=== PATIENT | female | born 1960 | race Caucasian/White ===

== ENCOUNTER 2018-07-07 17:19 | Emergency (ER) | payer OTHER ==
[2018-07-07 18:23] VITALS: BP 150/102
--- NOTE | 2018-07-07 19:08 | EDPHY ---
H & P Stated Complaint: Exacebated pain on L lateral knee. Chronic issues. Time Seen by Provider: 07/07/18 17:31 HPI/ROS: 57 yo F presents c/o left knee pain, she states it has been hurting intermittenly for at least one year, but over the last few days it has been more painful and swollen, no falls, possibly more standing and walking then usual the last few weeks. No rashes, no fevers or chills. Review of systems As per HPI General no fever no chills no weakness HEENT no eye pain no eye discharge. No eye redness, no sore throat Respiratory no cough, no shortness of breath Cardiac no chest pain, no peripheral edema GI no abdominal pain, no diarrhea, no constipation, no nausea, no vomiting no flank pain, no hematuria, no dysuria Musculoskeletal no myalgias, pos joint pain Heme no easy bruising, no easy bleeding Endo no polyuria, no polydipsia Skin no rashes, no pruritus Neuro no syncope, no dizziness, no headaches Psych is no suicidal ideation, no homicidal ideation Source: Patient Exam Limitations: No limitations - Personal History Current Tetanus Diphtheria and Acellular Pertussis (TDAP): Yes Tetanus Vaccine Date: 2017 - Medical/Surgical History Hx Asthma: No Hx Chronic Respiratory Disease: No Hx Diabetes: No Hx Cardiac Disease: No Hx Renal Disease: No Hx Cirrhosis: No Hx Alcoholism: No Hx HIV/AIDS: No Hx Splenectomy or Spleen Trauma: No Other PMH: Denies PMH. - Family History Significant Family History: No pertinent family hx - Social History Smoking Status: Never smoked Alcohol Use: Occasionally Drug Use: None - Physical Exam Exam: Alert and oriented in no acute distress nontoxic appearance, afebrile Atraumatic normocephalic Neck no JVD Lungs clear to auscultation, no respiratory distress Heart regular rate and rhythm Extremities no cyanosis clubbing edema left knee positive swellling, tenderness to palpation along lateral aspect of knee ,also most prominent area of swelling, no erythema, neg ant/post drawer no gross laxity, from Constitutional: Initial Vital Signs Temperature (C) 36.7 C 07/07/18 17:35 Heart Rate 87 07/07/18 17:35 Respiratory Rate 16 07/07/18 17:35 Blood Pressure 150/102 H 07/07/18 17:35 O2 Sat (%) 96 07/07/18 17:35 O2 Delivery Mode Room Air Allergies/Adverse Reactions: No Known Allergies Allergy (Unverified 07/07/18 17:34) Home Medications: Medication Instructions Recorded NK [No Known Home Meds] 07/07/18 Medical Decision Making ED Course/Re-evaluation: Patient seen and evaluated for left knee pain and swelling. xray with calcification in lateral collateral ligament imp calcific osteoarthritis left knee, primarily at lateral collateral ligament plan rest, ice, elevation ibuprofen or acetaminophen as needed f/u with orthopedics offered knee brace-pt refused Differential Diagnosis: Differential diagnosis considered but not limited to: Knee sprain, knee effusion, tibial plateau fracture, fibula fracture, distal femur fracture, patellar dislocation, tendinitis, osteoarthritis Departure - Departure Disposition: Home, Routine, Self-Care Clinical Impression: Left knee pain, Arthritis of left knee Condition: Good Instructions: Knee Sprain (ED), Knee Pain (ED) Referrals: NONE *PRIMARY CARE P,. [Primary Care Provider] - As per Instructions Kem Palomo MD [Medical Doctor] - As per Instructions
== END 2018-07-07 19:25 | disposition home or self-care (01) ==
LOC: CED 17:19
DX: M17.12 Unilateral primary osteoarthritis, left knee (principal)
CPT/HCPCS: 73564-PO